=== PATIENT | female | born 1970 | race Caucasian/White ===

== ENCOUNTER 2016-12-14 14:30 | Emergency (ER) | payer OTHER ==
[2016-12-14] MEDS ORDERED: ACETAMINOPHEN 325 MG TABLET PO ONE (15:04)
[2016-12-14] MEDS ORDERED: DIPH/PERTUSS(ACELL)/TETANUS VAC/PF 0.5 ML SYR (>=10YO) IM ONE (15:04)
--- NOTE | 2016-12-14 15:22 | ER Document Report ---
ED Extremity Problem, Lower - General Chief Complaint: Foot Pain Stated Complaint: FOOT PAIN Time Seen by Provider: 12/14/16 15:03 Notes: Patient is a 46-year-old female presents emergency department complaining of right lateral foot pain. Patient states that she is unsure if she stepped on something but has been having pain in the right side of her foot. She states that it got worse approximate couple of days ago after her tried to examine the area and possibly remove if there was a foreign body present. She states that he did cut her foot. She states her tetanus is not up-to-date. She is not diabetic. States that the redness and the swelling got worse after her tried to inspect the area. TRAVEL OUTSIDE OF THE [place] IN LAST 30 DAYS: No - Related Data Allergies/Adverse Reactions: No Known Allergies Allergy (Verified 12/14/16 14:53) Past Medical History - Social History Smoking Status: Unknown if Ever Smoked Family History: Reviewed & Not Pertinent - Past Medical History Cardiac Medical History: Denies: Hx Coronary Artery Disease, Hx Heart Attack, Hx Hypertension Pulmonary Medical History: Denies: Hx Asthma, Hx Bronchitis, Hx COPD, Hx Pneumonia Neurological Medical History: Denies: Hx Cerebrovascular Accident, Hx Seizures Renal/ Medical History: Denies: Hx Peritoneal Dialysis Musculoskeltal Medical History: Denies Hx Arthritis Past Surgical History: Denies: Hx Pacemaker - Immunizations Hx Diphtheria, Pertussis, Tetanus Vaccination: Yes Review of Systems - Review of Systems Constitutional: No symptoms reported Skin: See HPI -: Yes All other systems reviewed and negative Physical Exam - Vital signs Vitals: Temp Pulse Resp BP Pulse Ox 98.6 F 70 20 129/87 H 99 12/14/16 14:55 12/14/16 14:55 12/14/16 14:55 12/14/16 14:55 12/14/16 14:55 - Notes Notes: PHYSICAL EXAM GENERAL: Alert, interacts well. EXTREMITIES: Moves all 4 extremities spontaneously. No edema, radial and dorsalis pedis pulses 2/4 bilaterally. No cyanosis. NEUROLOGICAL: Alert and oriented x4. Normal speech. PSYCH: Normal affect, normal mood. SKIN: Warm, dry, normal turgor. mild erythema and tenderness midshaft of the 5th metatarsal without surrounding tenderness, deformity, ecchymosis or swelling. Evidence of puncture wound on the sole of her foot in this area of inflammation Course - Re-evaluation Re-evalutation: 12/14/16 17:36 Patient is a 46-year-old female who is hemodynamic stable, no acute distress afebrile. Presentation today is consistent with cellulitis likely due to puncture injury. Patient's tetanus was updated and placed on prophylactic antibiotics. Patient to follow-up with primary care no evidence of a septic joint, gout flare, dislocation, or fracture on exam and imaging. Vitals wnl. At this time, I do not see an indication for labs or further imaging. Will discharge with conservative measures, return precautions, and follow-up recommendations. - Vital Signs Vital signs: Temp Pulse Resp BP Pulse Ox 98.9 F 55 L 16 116/79 98 12/14/16 16:41 12/14/16 16:41 12/14/16 16:41 12/14/16 16:41 12/14/16 16:41 - Diagnostic Test Radiology reviewed: Image reviewed, Reports reviewed Discharge - Discharge Clinical Impression: Foot pain Condition: Good Disposition: HOME, SELF-CARE Instructions: Cellulitis ([facility]), Use of Mmvo-Naz-Rywyawe Ibuprofen ([facility]), Puncture Wound ([facility]) Prescriptions: Cephalexin Monohydrate [Keflex 500 mg Capsule] 500 mg PO Q6H 5 Days capsule Referrals: SHRADDHA MALDONADO MD [Primary Care Provider] - Follow up as needed
--- NOTE | 2016-12-14 15:45 | RADIOLOGY REPORT (SQ) ---
EXAM DESCRIPTION: FOOT RIGHT COMPLETE COMPLETED DATE/TIME: 12/14/2016 3:25 pm REASON FOR STUDY: right foot pain and redness, r/o FB COMPARISON: None. NUMBER OF VIEWS: Three views. TECHNIQUE: AP, lateral and oblique radiographic images acquired of the right foot. LIMITATIONS: None. FINDINGS: MINERALIZATION: Normal. BONES: No acute fracture or dislocation. No worrisome bone lesions. JOINTS: No effusions. SOFT TISSUES: Plantar soft tissue swelling. No foreign body identified. OTHER: No other significant finding. IMPRESSION: No foreign body identified. TECHNICAL DOCUMENTATION: JOB ID: [id number] [employer]- All Rights Reserved
[2016-12-14 16:46] VITALS: BP 116/79
== END 2016-12-14 16:45 | disposition home or self-care (01) ==
LOC: ER 14:30
DX: M79.671 Pain in right foot (principal)
CPT/HCPCS: 90471; 90715; 99283

== ENCOUNTER 2018-06-08 18:47 | Emergency (ER) | payer OTHER ==
[2018-06-08] MEDS ORDERED: KETOROLAC TROMETHAMINE 60 MG/2 ML SDV IM ONE (21:45)
--- NOTE | 2018-06-08 21:45 | ER Document Report ---
HPI - HPI Time Seen by Provider: 06/08/18 19:42 Pain Level: 4 Context: Patient is a 48-year-old female who presents emergency department with a chief complaint of right flank pain and tenderness to her lower abdomen. She states that there is no actual pain in her abdomen, but tenderness near her bladder area. She states that she has had her symptoms for the past 2 weeks. She has been taking Azo and cranberry juice to help with her symptoms at home, but she has had no improvement with her symptoms. She denies any fever, nausea, vomiting, or diarrhea. - ROS Systems Reviewed and Negative: Yes All other systems reviewed and negative - CONSTITUTIONAL Constitutional: DENIES: Fever, Chills - CARDIOVASCULAR Cardiovascular: DENIES: Chest pain - RESPIRATORY Respiratory: DENIES: Trouble Breathing, Coughing - GASTROINTESTINAL Gastrointestinal: DENIES: Abdominal Pain, Nausea, Patient vomiting, Diarrhea - URINARY Urinary: REPORTS: Dysuria, Urgency, Frequency - REPRODUCTIVE Reproductive: DENIES: : - MUSCULOSKELETAL Musculoskeletal: DENIES: Extremity pain - DERM Skin Color: Normal Skin Problems: None Past Medical History - Social History Smoking Status: Never Smoker Family History: Reviewed & Not Pertinent - Past Medical History Cardiac Medical History: Denies: Hx Coronary Artery Disease, Hx Heart Attack, Hx Hypertension Pulmonary Medical History: Denies: Hx Asthma, Hx Bronchitis, Hx COPD, Hx Pneumonia Neurological Medical History: Denies: Hx Cerebrovascular Accident, Hx Seizures Renal/ Medical History: Denies: Hx Peritoneal Dialysis Musculoskeletal Medical History: Denies Hx Arthritis Past Surgical History: Denies: Hx Pacemaker - Immunizations Hx Diphtheria, Pertussis, Tetanus Vaccination: Yes Vertical Provider Document - INFECTION CONTROL TRAVEL OUTSIDE OF THE [place] IN LAST 30 DAYS: No - HEENT HEENT: Atraumatic, Normocephalic - NECK Neck: Normal Inspection - RESPIRATORY Respiratory: Breath Sounds Normal, No Respiratory Distress - CARDIOVASCULAR Cardiovascular: Regular Rate, Regular Rhythm - GI/ABDOMEN Gastrointestinal: Abdomen Soft, Abdomen Tender - very mild lower. negative: Abdominal Guarding - BACK Back: Normal Inspection. negative: CVA Tenderness-Right, CVA Tenderness-Left - MUSCULOSKELETAL/EXTREMETIES Musculoskeletal/Extremeties: FROM - NEURO Level of Consciousness: Awake, Alert, Appropriate Motor/Sensory: No Motor Deficit, No Sensory Deficit - DERM Integumentary: Warm, Dry Course - Re-evaluation Re-evalutation: 06/08/18 21:46 A urinalysis will be sent and the patient will be given 60 mg of Toradol IM to help with her symptoms. A urinalysis will be sent. 06/08/18 22:30 Patient presents with symptoms consistent with an acute cystitis. Vitals wnl. Patient is well in appearance, tolerating oral intake without difficulty. I have a very low suspicion for acute appendicitis, biliary pathology, acute pancreatitis, tubo-ovarian abscesses, or pelvic inflammatory disease. Patient will be started on antibiotics at this time. A culture has been sent. They will be discharged with return precautions and follow-up recommendations. - Vital Signs Vital signs: Temp Pulse Resp BP Pulse Ox 97.5 F 73 22 H 133/76 H 98 06/08/18 20:22 06/08/18 20:22 06/08/18 20:22 06/08/18 20:22 06/08/18 20:22 Discharge - Discharge Clinical Impression: Urinary tract infection Qualifiers: Urinary tract infection type: acute cystitis Hematuria presence: without hematuria Qualified Code(s): N30.00 - Acute cystitis without hematuria Condition: Stable Disposition: HOME, SELF-CARE Instructions: Trimethoprim-Sulfa ([facility]), Urinary Tract Infection ([facility]) Additional Instructions: Your urine shows findings consistent with a urinary tract infection. Please take all the antibiotics as directed even if your symptoms have improved. Please follow-up with your primary care physician as needed. Return to emergency room if you develop fever >101F, persistent vomiting, become lethargic, have severe pain in your sides, or any other symptoms that are concerning to you. Prescriptions: Sulfamethoxazole/Trimethoprim [Bactrim Ds Tablet] 1 each PO BID 7 Days #14 tablet Referrals: SHRADDHA MALDONADO MD [Primary Care Provider] - Follow up as needed
[2018-06-08 22:14] LABS: APPEARANCE,URINE CLEAR; BILIRUBIN,URINE NEGATIVE (NEGATIVE); COLOR,URINE YELLOW; GLUCOSE, URINE NEGATIVE (NEGATIVE); KETONES,URINE NEGATIVE (NEGATIVE); LEUKOCYTE ESTERASE,URINE LARGE (NEGATIVE); NITRITE,URINE NEGATIVE (NEGATIVE); PROTEIN,URINE NEGATIVE (NEGATIVE); URINE SPECIFIC GRAVITY 1.005; UROBILINOGEN,URINE NEGATIVE mg/dL (<2.0)
[2018-06-08] MEDS ORDERED: SULFAMETHOXAZOLE/TRIMETHOPRIM 800-160 MG TABLET PO ONE (22:29)
[2018-06-08 22:55] VITALS: BP 132/76
== END 2018-06-08 22:55 | disposition home or self-care (01) ==
LOC: ER 18:47
DX: N30.00 Acute cystitis without hematuria (principal)
CPT/HCPCS: 99284; 96372; 87086; 87088; 81001; 87186; J1885